=== PATIENT | female | born 1955 | race Caucasian/White ===

== ENCOUNTER → 2016-12-31 | Outpatient (CLI) | payer OTHER ==
[~2016-12-31] MED LIST: ALBUTEROL 0.5ML INH; ALBUTEROL17 GM INH; BIOTIN PO; CALTRATE 600+D PO; DULERA IN; FLEXERIL PO; MUCINEX DM1 TAB.SR . PO; NASONEX IN; NO HOME MEDS; PERCOCET 5-3251 TAB PO; ROBITUSSIN-DM120 ML PO; SINGULAIR PO; VITAMIN D PO; VITAMIN D350000 UNIT; ZINC SULFATE PO
--- NOTE | ~2016-12-31 | CR63 ---
[facility] A Service of [facility] / [facility] RADIOLOGY TEXT RESULTS PATIENT: IVELISSE HOWE LOCATION: [facility] : 57 UNIT #: [id number] AGE: [address]: Hugh Street MD SEX: F ORDER DR: [id number] [facility] [address] [place], [place] [address] [id number] O MR#: [id number] Acc #: [id number] NAME: IVELISSE HOWE : 1955 SEX: F STUDY DATE/TIME: 12/31/2016 10:43 UNIT: [facility] ROOM: STUDY DESCRIPTION: CR Chest 2 View Attending Physician: Hugh Street M.D. Referring Physician: Hugh Street M.D. Ordering Physician: Hugh Street M.D. Primary Care Physician: Ward Cooley Jr., M.D. MEDICAL IMAGING REPORT This report is preliminary unless electronic signature is present EXAM Chest x-ray, 12/31/2016. HISTORY 61-year-old female complaining of a 3-week history of shortness of air and cough. TECHNIQUE PA and lateral upright chest series. FINDINGS The lungs are expanded and clear. No visible pulmonary infiltrate or pleural effusion. Heart size and pulmonary vascularity are within normal limits. No significant change since 07/20/2013. IMPRESSION No active disease. No change since 07/20/2013. Dictated by... Deonte Arriaga M.D. THIS IS AN ELECTRONICALLY VERIFIED REPORT Deonte Arriaga M.D. at 12/31/2016 6:48 PM RGW/javier TD: 12/31/2016 12:49 JOB #: [id number] MEDICAL IMAGING REPORT Page 1 of 1 COPY
== END | disposition home or self-care (01) ==
LOC: CRAD 09:53
DX: R06.02 Shortness of breath (principal); R05 Cough
CPT/HCPCS: 71020